=== PATIENT | female | born 1985 | race Hispanic/Latino ===

== ENCOUNTER 2018-07-27 05:17 | Inpatient (IN) | payer OTHER ==
[2018-07-27] MEDS ORDERED: Promethazine HCl 25 MG/ML VIAL IM PRN ×2 (05:44→08:35)
[2018-07-27] MEDS ORDERED: Bicitra 30 ML UDCUP PO SCH (05:44)
[2018-07-27] MEDS ORDERED: Ondansetron PF 4 MG/2 ML Vial IVP PRN ×3 (05:44→09:12)
[2018-07-27] MEDS ORDERED: CEFAZOLIN 2 GM/50 ML BAG IVPB SCH (06:00)
[2018-07-27 06:03] VITALS: BMI 40.3
[2018-07-27] MEDS: Lactated Ringer's 1,000 ML IV SCH ×2 (06:04→06:29)
[2018-07-27 06:13] LABS: Hemoglobin 11.6 g/dL (12.0-16.0); Mean Corpuscular HGB CONC 34.8 g/dL (32.0-36.0); Mean Corpuscular Hemoglobin 27.2 pg (27.0-31.0); Mean Corpuscular Volume 78.2 fL (78.0-98.0); Mean Platelet Volume 8.9 fL (7.4-10.4); Platelet Count 215 thou/uL (130-400); RBC Distribution Width 14.7 % (11.5-14.5); Red Blood Cell (RBC) Count 4.28 mill/uL (4.20-5.40); White Blood Cell (WBC) Count 10.3 thou/uL (4.8-10.8)
[2018-07-27] MEDS ORDERED: Fentanyl 100 MCG/2 ML VIAL ONE (06:47)
[2018-07-27] MEDS ORDERED: Oxytocin 10 UNITS/ML VIAL ONE (06:47)
[2018-07-27] MEDS ORDERED: Morphine PF 1 MG/ML SYR ONE (06:48)
[2018-07-27] MEDS ORDERED: Bupivacaine 0.75% W/DEXTROSE 8.25% 2 ML AMP ONE (06:48)
[2018-07-27] MEDS ORDERED: PHENYLEPHRINE-NS 100 MCG/ML 10 ML SYRINGE ONE ×2 (06:50→14:40)
[2018-07-27] MEDS ORDERED: Ondansetron PF 4 MG/2 ML Vial ONE ×2 (06:50→09:30)
[2018-07-27] MEDS ORDERED: ePHEDrine/0.9% NaCl/PF SYRINGE 50 mg/10 ml ONE ×2 (06:50→14:40)
[2018-07-27] MEDS ORDERED: Ketorolac Tromethamine 30 MG/ML VIAL ONE ×2 (06:50→14:40)
[2018-07-27 07:05] LABS: HBSAg Index 0.17 S/CO (0-0.99); Hep B Surf Ag Non-Reactive S/CO (NonReactive); Syphilis Antibody Nonreactive (Nonreactive); Syphilis Antibody Index 0.02 S/CO (<1.00 Non-Reactive)
[2018-07-27] MEDS ORDERED: Naloxone HCl 0.4 mg/ml Vial IV PRN (08:35)
[2018-07-27] MEDS ORDERED: Promethazine HCl 25 MG SUPP PR PRN (08:35)
[2018-07-27] MEDS ORDERED: Naloxone HCl 0.4 mg/ml Vial IVP PRN ×2 (08:35)
[2018-07-27] MEDS ORDERED: Eucerin (Mineral Oil/Petrolatum,White) 30 gm Jar TOP PRN (08:35)
[2018-07-27] MEDS ORDERED: diphenhydrAMINE 50 MG/ML VIAL IVP PRN (08:35)
[2018-07-27] MEDS ORDERED: Ketorolac Tromethamine 30 MG/ML VIAL IVP PRN (08:35)
[2018-07-27] MEDS ORDERED: Communication Order-Pharmacy FS SCH (08:45)
[2018-07-27] MEDS ORDERED: Simethicone Chewable 80 MG TAB PO PRN (09:12)
[2018-07-27] MEDS ORDERED: Bisacodyl 10 MG SUPP PR PRN (09:12)
[2018-07-27] MEDS ORDERED: Lanolin Ointment 7 GM TUBE TOP PRN (09:12)
[2018-07-27] MEDS ORDERED: Acetaminophen 325 MG TAB PO PRN (09:12)
[2018-07-27] MEDS ORDERED: Adacel (T-DAP) 0.5 ML SYRINGE IM ONE (09:12)
[2018-07-27] MEDS ORDERED: Zolpidem Tartrate 5 MG TAB PO PRN (09:12)
[2018-07-27] MEDS ORDERED: diphenhydrAMINE 25 MG CAP PO PRN (09:12)
[2018-07-27] MEDS ORDERED: Misoprostol 200 MCG TAB PR PRN (09:12)
[2018-07-27] MEDS ORDERED: Lactated Ringer's 1,000 ML IV SCH (09:15)
[2018-07-27] MEDS ORDERED: NS / Oxytocin 40 units/1000ml 1,000 ML IV SCH (09:15)
[2018-07-27] MEDS: Ferrous Sulfate 325 MG TAB PO SCH (19:15)
[2018-07-27] MEDS ORDERED: Meperidine HCl/PF 25 MG/ML VIAL IM PRN (20:45)
[2018-07-27] MEDS ORDERED: HYDROcodone/Acetaminophen 5/325 mg Tablet PO PRN (20:45)
[2018-07-27] MEDS: Docusate Calcium (SURFAK) 240 MG CAP PO SCH (21:44)
[2018-07-28] MEDS: HYDROcodone/Acetaminophen 5/325 mg Tablet PO PRN ×3 (04:47→21:11)
[2018-07-28 05:57] LABS: Hemoglobin 8.5 g/dL (12.0-16.0); Mean Corpuscular HGB CONC 34.3 g/dL (32.0-36.0); Mean Corpuscular Hemoglobin 27.1 pg (27.0-31.0); Mean Platelet Volume 8.3 fL (7.4-10.4); Platelet Count 153 thou/uL (130-400); RBC Distribution Width 14.8 % (11.5-14.5); Red Blood Cell (RBC) Count 3.15 mill/uL (4.20-5.40); White Blood Cell (WBC) Count 7.3 thou/uL (4.8-10.8)
[2018-07-28] MEDS: Prenatal Vitamin 1 TAB PO SCH (09:14)
[2018-07-28] MEDS: Docusate Calcium (SURFAK) 240 MG CAP PO SCH ×2 (09:15→21:10)
[2018-07-28] MEDS: Ferrous Sulfate 325 MG TAB PO SCH ×2 (09:15→17:05)
--- NOTE | 2018-07-28 11:15 | OP ---
DATE OF PROCEDURE: 07/27/2018 RESIDENT SURGEON: Isabelle Faria MD MILL HAND PLATE MILL SURGEON: Renu Hackett MD PREOPERATIVE DIAGNOSES: 1. Term intrauterine at 39 weeks. 2. Prior sections x2. POSTOPERATIVE DIAGNOSES: 1. Term intrauterine at 39 weeks. 2. Prior sections x2. PROCEDURE PERFORMED: Repeat low-transverse section. ANESTHESIA: Spinal catheterization. FINDINGS: 1. Dense scarring secondary to 2 previous C-sections with no peritoneal closure or rectus reapproximation. 2. Vigorous female 7 pounds 1 ounce. Apgars 8 and 9. 3. Normal uterus, tubes, and ovaries. COMPLICATIONS: None. SPECIMENS REMOVED: Cord blood. BLOOD LOSS: Approximately 400 mL, (QBL 313 mL). DESCRIPTION OF PROCEDURE: After thorough consent and counseling, Mrs. Moss was taken to the operating room and an adequate level of anesthesia was obtained via spinal catheterization. The patient was prepped and draped in usual sterile fashion for abdominal surgery. A Cornelius was placed in the bladder, which was noted to be draining clear urine. Attention was then turned to performing the repeat low-transverse section. A Pfannenstiel incision was made and the old scar was excised. The incision was carried sharply to the fascia, which was also sharply incised. Dense scar tissue was encountered in the subcutaneous tissue at the Jitendra's and Camper's layer. The midline was identified, the rectus muscles were retracted laterally. The abdominal peritoneal cavity was entered with the usual safeguards carried out. There was dense scarring in the anterior cul-de-sac and over the bladder secondary to the patient's previous caesarean deliveries. Careful meticulous dissection was performed freeing the bladder from the anterior abdominal wall. The abdominal peritoneal cavity was entered with the usual safeguards carried out. A bladder flap was created on the vesicouterine peritoneum and a bladder blade was placed. There was a small uterine window noted. Upon entering the amniotic sac, copious amount of clear amniotic fluid was visualized. The was noted to be vertex presentation in the occiput anterior position still high in the pelvis, head was delivered and baby was bulb suctioned on the abdomen. Shoulders and body were then delivered in an atraumatic fashion. The cord was doubly clamped and cut and the was handed to the Pediatric Team in attendance for the delivery. The infant was a vigorous viable male, weighing 7 pounds 1 ounce with Apgars of 8 and 9 obtained at 1 and 5 minutes respectively. Cord blood was obtained. The placenta was manually removed from the uterus. The uterus was exteriorized and good tone was noted. The uterine cavity was cleared of any remaining clot and fluid. The low-transverse incision was closed in running locking ligature of #1 chromic. A second imbricating layer was placed to facilitate strengthening hemostasis. In addition, 4 [id number] ligatures of 0 Vicryl suture were placed for additional strength and hemostasis reapproximating the scar dehiscence. Good muscle integrity was then noted. The bladder flap was reapproximated to the lower segment with a running ligature of 2-0 Monocryl suture. Again, good tone and hemostasis were appreciated. The posterior cul-de-sac gutters were cleared of clot and fluid. The uterus was returned to the abdomen. Laps, sponge and needle counts were correct. The peritoneum was then closed with a running ligature of 2-0 Vicryl. The rectus muscles were reapproximated in the midline with interrupted ligatures of #1 chromic suture as well as 0 Vicryl suture. Good rectus muscle reapproximation was appreciated. Good tone and hemostasis were appreciated. The fascia was then closed with 2 ligatures of 0 Vicryl suture which were tied in the midline. Good fascial integrity was noted. The incision was irrigated with copious amount of warm normal saline. Hemostasis was obtained with Bovie cauterization. The subcutaneous tissue was then closed with multiple interrupted ligatures of 2-0 plain suture. The skin was then closed with a subcuticular stitch of 4-0 Monocryl and dressed with Dermabond. A pressure dressing and ice packs were subsequently placed. Laps, sponge, and needle counts were correct x3. Estimated blood loss during the surgical procedure was approximately 400 mL, (QBL equals 313 mL). The patient was taken to recovery room in good condition. Immediately following the surgery, the patient and family were made aware of the surgical procedure and operative findings. Questions answered to their satisfaction. Job ID: [id number]
[2018-07-28] MEDS: Ibuprofen 800 MG TAB PO SCH ×2 (13:49→21:10)
[2018-07-29] MEDS: Ibuprofen 800 MG TAB PO SCH ×3 (06:30→21:22)
[2018-07-29] MEDS: Ferrous Sulfate 325 MG TAB PO SCH (09:42)
[2018-07-29] MEDS: Prenatal Vitamin 1 TAB PO SCH (09:42)
[2018-07-29] MEDS: Docusate Calcium (SURFAK) 240 MG CAP PO SCH ×2 (09:42→21:22)
[2018-07-30] MEDS: Ibuprofen 800 MG TAB PO SCH (06:28)
[2018-07-30 08:20] VITALS: BP 111/58; TEMP 98.3
[2018-07-30] MEDS: Prenatal Vitamin 1 TAB PO SCH (09:51)
[2018-07-30] MEDS: Ferrous Sulfate 325 MG TAB PO SCH (09:52)
[2018-07-30] MEDS: Docusate Calcium (SURFAK) 240 MG CAP PO SCH (09:52)
== END 2018-07-30 11:28 | disposition home or self-care (01) | DRG 788 ==
LOC: L&D 05:17 → 3SW 11:10
PROVIDERS: ADMIT Obstetrics & Gynecology; ATTEND Obstetrics & Gynecology
PROC: 10D00Z1 Extraction of Products of Conception, Low, Open Approach (ICD-10-PCS; principal; 2018-07-27)
DX: O34.211 Maternal care for low transverse scar from previous cesarean delivery (principal); Z3A.39 39 weeks gestation of pregnancy; Z37.0 Single live birth
CPT/HCPCS: 36415; 51702; 85027; 86780; 86850; 86900; 86901; 87340; J1885; J2274; J2405; J2590; J3010; J3490